=== PATIENT | female | born 1950 | race Caucasian/White ===

== ENCOUNTER 2018-08-11 21:05 | Emergency (ER) | payer MEDICARE, MEDICAID ==
[~2018-08-11] VITALS: Wt 108.9 kg
[~2018-08-11 21:05] MED LIST: FLEXERIL5 MG PO; HYDROCODONE BIT1 T11 PO; PHENERGAN W/DM120 ML PO; VICODIN 5/500 505 MG PO; ZITHROMAX Z PA250 MG PO
[2018-08-11 23:30] VITALS: BP 112/57
== END 2018-08-12 00:55 | disposition short-term general hospital (02) ==
LOC: ED 21:05
DX: S72.492A Other fracture of lower end of left femur, initial encounter for closed fracture (principal); S42.202A Unspecified fracture of upper end of left humerus, initial encounter for closed fracture; S42.145A Nondisplaced fracture of glenoid cavity of scapula, left shoulder, initial encounter for closed fracture; Z79.899 Other long term (current) drug therapy; Z98.890 Other specified postprocedural states; W18.09XA Striking against other object with subsequent fall, initial encounter; Y93.89 Activity, other specified; Y92.512 Supermarket, store or market as the place of occurrence of the external cause; Y99.8 Other external cause status

== ENCOUNTER → 2018-10-04 | Outpatient (CLI) | payer MEDICARE, MEDICAID | END | disposition home or self-care (01) | LOC: RAD 04:35 | DX: Z13.820 Encounter for screening for osteoporosis (principal); M80.022D Age-related osteoporosis with current pathological fracture, left humerus, subsequent encounter for fracture with routine healing; M80.052D Age-related osteoporosis with current pathological fracture, left femur, subsequent encounter for fracture with routine healing; Z78.0 Asymptomatic menopausal state ==

== ENCOUNTER → 2019-12-05 | Outpatient (CLI) | payer MEDICARE, MEDICAID ==
[2019-12-05 09:09] LABS: ABG BASE EXCESS 9.8 mmol/L (-2.0-2.0); ARTERIAL BLOOD GAS PH 7.379 (7.35-7.45)
== END | disposition home or self-care (01) ==
LOC: LAB 08:24
PROVIDERS: Internal Medicine Critical Care Medicine
DX: J44.9 Chronic obstructive pulmonary disease, unspecified (principal); J96.11 Chronic respiratory failure with hypoxia

== ENCOUNTER 2020-09-02 07:54 | Inpatient (IN) | payer MEDICARE, MEDICAID ==
[~2020-09-02] VITALS: Ht 152.4 cm; Wt 118.0 kg
[2020-09-02 07:59] VITALS: BP 142/78
[2020-09-02 08:47] LABS: BASO % 0.3 % (0.0-1.0); EOS # 0.1 10*3/uL (0.0-0.4); HEMATOCRIT 40.3 % (37.0-47.0); LYMPH # 1.1 10*3/uL (1.3-4.4); LYMPH % 18.2 % (27.0-41.0); MEAN CELL VOLUME 94.6 fl (81.0-99.0); MEAN CORPUSCULAR HGB 28.2 pg (27.0-31.0); MEAN CORPUSCULAR HGB CONC 29.8 g/dl (33.0-37.0); MEAN PLATELET VOLUME 8.9 fl (9.6-12.3); MONO # 0.7 10*3/uL (0.1-1.0); MONO % 12.1 % (3.0-9.0); NEUT # 3.9 10*3/uL (2.3-7.9); NEUT % 66.9 % (47.0-73.0); PLATELET COUNT AUTOMATED 142 10*3/uL (130-400); RED BLOOD COUNT 4.26 10*6/uL (4.10-5.10); RED CELL DISTRI WIDTH 15.7 % (0-14.5); WHITE BLOOD COUNT 5.9 10*3/uL (4.8-10.8)
[2020-09-02 08:59] LABS: ACT PARTIAL THROMBO TIME 28.7 SECONDS (20.0-32.1); INTERNATIONAL NORM RATIO 0.9 (2.0-3.5)
[2020-09-02 09:03] LABS: ALBUMIN 2.9 gm/dl (3.1-4.5); ALKALINE PHOSPHATASE 122 U/L (45-117); BUN 23 mg/dl (7-24); CHLORIDE 98 mmol/L (98-107); CPK 23 U/L (26-192); CREATININE 0.85 mg/dL (0.55-1.02); LDH 163 U/L (84-246); POTASSIUM 4.3 mmol/L (3.5-5.1); SGOT/AST 18 IU/L (3-35); SGPT/ALT 24 U/L (12-78); SODIUM 142 mmol/L (136-145); TOTAL PROTEIN 6.9 gm/dL (6.4-8.2)
[2020-09-02 09:10] LABS: TROPONIN I < 0.015 ng/ml (<0.045)
[2020-09-02 10:40] LABS: ARTERIAL BLOOD GAS PH 7.297 (7.35-7.45)
--- NOTE | 2020-09-02 11:43 | NUR ---
DR RANGEL CONSULT CALLED, VERBAL ORDER FOR BIPAP TO 20/10 40%, ABG IN 2HOURS. I DID CALL AND SPEAK DIRECTLY WITH RESPIRATORY BUT AM UNABLE TO INPUT THESE ORDERS DIRECTLY MYSELF INTO THE ORDER SYSTEM AND DR BOONE IS NO LONGER THE PT'S
--- NOTE | 2020-09-02 12:00 | NUR ---
BIPAP CHANGES MADE, PATIENT PLACED ON 20/10 FIO2 40%, ABGS ORDERED IN 2 HOURS
[2020-09-02 12:14] VITALS: BP 138/74
[2020-09-02] MEDS ORDERED: BUSPAR5 MG PO (12:38)
[2020-09-02] MEDS ORDERED: ABILIFY2 MG PO (12:38)
[2020-09-02] MEDS ORDERED: MIRALAX17 GM PO (12:39)
[2020-09-02] MEDS ORDERED: LASIX40 MG PO (12:39)
[2020-09-02] MEDS ORDERED: NEURONTIN100 MG PO (12:40)
[2020-09-02] MEDS ORDERED: MULTIVITAMINS1 EAC5 PO (12:40)
[2020-09-02] MEDS ORDERED: POTASSIUM CHLO10 ME5 PO (12:41)
[2020-09-02] MEDS ORDERED: PAXIL40 M1 PO (12:41)
[2020-09-02] MEDS ORDERED: POTASSIUM CHLO20 ME3 PO (12:42)
[2020-09-02] MEDS ORDERED: PRESERVISION A1 EAC2 PO (12:43)
[2020-09-02] MEDS ORDERED: SYNTHROID,LEV125 MCG PO (12:43)
[2020-09-02] MEDS ORDERED: VITAMIN C500 M8 PO (12:44)
[2020-09-02] MEDS ORDERED: CARVEDILOL12.5 MG PO (12:46)
[2020-09-02] MEDS ORDERED: SYMB160 INH (12:47)
[2020-09-02] MEDS ORDERED: FISH OIL 1,0001 EAC5 PO (12:47)
[2020-09-02] MEDS ORDERED: PROVENTIL HFA6.7 GM INH (12:48)
--- NOTE | 2020-09-02 12:57 | NUR ---
PT PLACED ON BEDPAN BUT [place] SPILLED. PT HAD ASKED TO *NOT* BE CATH'D FOR SPECIMEN. BED CHANGE ACCOMPLISHED, NEW ADULT BRIEF AND NEW BEDPAD. WILL RE-EVALUATE PT ACCEPTANCE OF URINARY CATH.
[2020-09-02 14:35] LABS: ABG BASE EXCESS 14.7 mmol/L (-2.0-2.0); ARTERIAL BLOOD GAS PH 7.329 (7.35-7.45)
--- NOTE | 2020-09-02 14:41 | NUR ---
DR RANGEL NOTIFIED OF SECOND ABG...PCO2 AT 86, DOWN FROM 94. DR RANGEL ORDERS REPEAT ABG AT 6PM AND TO MAINTAIN BIPAP AT 20/10 AT 40% FOR NOW. I DID SPEAK WITH EMANUEL FROM RESPIRATORY WHO STATES SHE WILL INPUT THIS ORDER AND FOLLOW UP AT 1800.
[2020-09-02 15:13] VITALS: BP 142/67
--- NOTE | 2020-09-02 16:49 | NUR ---
PT CHECDKED FOR INCONTINENCE AND TO ENSURE CALLBELL IS WITHIN REACH. PT DRY, DENIES NEED FOR BEDPAN. VITALS STABLE. SHE REMAINS A&OX3. I HAVE SPOKEN WITH HER FAMILY WHO STATE PT WILL NOT LIKE TO USE CALLBELL TO "BOTHER" US....I DID EMPHASIZE WITH PT TO PLEASE USE CALLBELL NEEDED. REFUSES TV. STATES SHE MIGHT BE FEELING SLIGHTLY BETTER. REPEAT ABG DUE AT 1800. BIPAP REMAINS IN PLACE WITHOUT COMPLICATION. POX 99% ON BIPAP CURRENT SETTINGS.
[2020-09-02 18:05] LABS: ABG BASE EXCESS 14.8 mmol/L (-2.0-2.0); ARTERIAL BLOOD GAS PH 7.333 (7.35-7.45)
--- NOTE | 2020-09-02 18:16 | NUR ---
2nd abg retuRNS W/ POC02 AT 85. DR RANGEL CONTACTED, STATES "SHE IS ON TRACk' AND TO LEAVE THE BIPAP ON CURRENT SETTINGS AND TO REPEAT THE ABG AT 0800. I DID SPEAK WITH EMANUEL FROM RESPIRATORY WHO SAID SHE WOULD INPUT THE ORDER TONANN.
[2020-09-02 20:31] VITALS: BP 127/84
[2020-09-02 23:41] LABS: BILIRUBIN Negative (Negative); BLOOD Trace-Intact (Negative); CLARITY Turbid (Clear); COLOR Yellow (Yellow); GLUCOSE Negative (Negative); KETONE Negative (Negative); LEUKO ESTERASE 3+ (Negative); NITRITE Negative (Negative)
[2020-09-02 23:49] LABS: WBC TNTC wbc/hpf (0-5)
[2020-09-02 23:50] LABS: BACTERIA 1+
[2020-09-03] VITALS (7 sets, daily range): BP systolic 112–140; BP diastolic 68–86
[2020-09-03 06:09] LABS: CHLORIDE 99 mmol/L (98-107); POTASSIUM 3.6 mmol/L (3.5-5.1); SODIUM 142 mmol/L (136-145)
[2020-09-03 06:16] LABS: BASO % 0.2 % (0.0-1.0); EOS # 0.1 10*3/uL (0.0-0.4); EOS % 1.2 % (1.0-4.0); HEMATOCRIT 38.2 % (37.0-47.0); LYMPH # 0.8 10*3/uL (1.3-4.4); LYMPH % 15.9 % (27.0-41.0); MEAN CELL VOLUME 94.3 fl (81.0-99.0); MEAN CORPUSCULAR HGB 28.1 pg (27.0-31.0); MEAN CORPUSCULAR HGB CONC 29.8 g/dl (33.0-37.0); MEAN PLATELET VOLUME 9.1 fl (9.6-12.3); MONO # 0.7 10*3/uL (0.1-1.0); MONO % 13.8 % (3.0-9.0); NEUT # 3.3 10*3/uL (2.3-7.9); NEUT % 68.5 % (47.0-73.0); PLATELET COUNT AUTOMATED 128 10*3/uL (130-400); RED BLOOD COUNT 4.05 10*6/uL (4.10-5.10); RED CELL DISTRI WIDTH 15.6 % (0-14.5); WHITE BLOOD COUNT 4.9 10*3/uL (4.8-10.8)
[2020-09-03 06:17] LABS: ALBUMIN 2.9 gm/dl (3.1-4.5); ALKALINE PHOSPHATASE 115 U/L (45-117); BUN 20 mg/dl (7-24); CREATININE 0.66 mg/dL (0.55-1.02); SGOT/AST 17 IU/L (3-35); SGPT/ALT 17 U/L (12-78); TOTAL PROTEIN 6.9 gm/dL (6.4-8.2)
[2020-09-03 06:25] LABS: CPK 44 U/L (26-192)
--- NOTE | 2020-09-03 07:10 | NUR ---
PT REPORT ACCEPTED FOR CONTINUATION OF CARE. PT RESTING WITH EYES CLOSED. NO VOICED COMPLAINTS. VITALS STABLE. MEAL TRAY WILL BE ORDERED SHORTLY. NO CHANGE IN CONDITION SINCE MY SHIFT YESTERDAY.
[2020-09-03 08:18] LABS: ABG BASE EXCESS 12.5 mmol/L (-2.0-2.0); ARTERIAL BLOOD GAS PH 7.328 (7.35-7.45)
--- NOTE | 2020-09-03 08:26 | NUR ---
DR ENRIQUEZ CONSULTED.
--- NOTE | 2020-09-03 08:58 | NUR ---
DR RANGEL CONSULTED WITH PCO2 AT 81 AND STATES TO CONTINUE BIPAP WITH CURRENT SETTING 20/10 AT 40% AND NO OTHER ORDERS.
--- NOTE | 2020-09-03 09:00 | NUR ---
Patient is a LTC resident at [facility]. inventory worker following for her return.
--- NOTE | 2020-09-03 09:55 | NUR ---
2D limited echo completed.
--- NOTE | 2020-09-03 10:05 | NUR ---
BREAKFAST TRAY PROVIDED TO PT WITH PARTIAL FEEDING OF TWO MILKS AND TWO JUICES, REFUSED THE ACTUAL FOOD. MEDS PROVIDED ORDERED. PT STATES SHE ACTUALLY FEELS "A LITTLE BETTER" AND SHE DOES PRESENT MORE ALERT THAN DURING MY SHIFT YESTERDAY. URINARY OUTPUT AT 400CC IN SANDOVAL BAG AT THIS TIME.
--- NOTE | 2020-09-03 12:47 | NUR ---
MEAL TRAY PROVIDED AND ASSISTANCE TO EAT AND DRINK TO HER CONTENT. NO VOICED COMPLAINTS.
--- NOTE | 2020-09-03 15:41 | NUR ---
NURSE REPORT TO ELDA KEENE, FOR CONTINUATION OF CARE. NO CHANGE IN CONDITION. NO COMPLAINT. PT RESTING WITH EYES CLOSED, VITALS STABLE.
--- NOTE | 2020-09-03 18:32 | NUR ---
PT TAKEN OFF OF BIPAP TO EAT. PLACED ON 4L VIA NC. SP02 95%. PT ATE 50% OF HER DINNER AND PT WAS ENCOURAGED TO DRINK FLUIDS. BIPAP REPLACED. PT DENIES ANY NEEDS AT THIS TIME.
--- NOTE | 2020-09-03 20:30 | NUR ---
A 70, admitted to , under the services of JOAO Sinclair DO with a diagnosis of COVID 19, HYPOXIA ACUTE RESP FAILURE. Chief complaint is DECREASED PULSE OX 85 EVER WITH HER OXYGEN AT [facility]. Patient arrived via stretcher from ER. Monitor applied. Initial assessment completed. Vital signs taken and recorded. JOAO SINCLAIR DO notified of admission to the unit. Orders received. See assessment for past medical history, medications and allergies. Patient and/or family oriented to unit. [facility] visitation policy reviewed. Clothing/patient valuable form completed. PINK MOISTURE RASH UNDER BREAST AND GROIN FOLDS. LOWER LEGS DARK BROWN AND FLAKY. PATIENT USALLY SITTING WHELLCHAIR AND WALKS WITH WALKER WITH PHYSICAL THERAPY FOR THE DAY. BON BUNN J
[2020-09-04] VITALS: BP 126/58
--- NOTE | 2020-09-04 01:00 | NUR ---
PULSE OX 82% PER CARBURIZING FURNACE OPERATOR. UPON ENTERING ROOM PATIENT SLEEPING LOWER LIP OF PATIENT OUT OF BIPAP MASK. BIPAP MASK ADJUSTED AND PULSE OX 88%-91% INCREASED OXYGEN TO 5 L BLEED INTO BIPAP PULSE OX INCREASE SLIGHTLY TO 92% INCREASED OXYGEN TO 6L RESPIRATORY THERAPIST HERE AND HELPING TO ADJUST MASK AND O2. WHEN LEAVING ROOM PULSE OX 95%. PATIENT TOLERATING BIPAP AT THIS TIME. WILL CONTINUE TO MONITOR.
[2020-09-04] MEDS ORDERED: LIPITOR20 MG PO (03:37)
--- NOTE | 2020-09-04 06:00 | NUR ---
PATIENT TOLERATED BIPAP SINCE 99 AND HAS NOT DESATED SINCE.
[2020-09-04 07:33] LABS: BASO % 0.3 % (0.0-1.0); HEMATOCRIT 37.8 % (37.0-47.0); LYMPH # 0.5 10*3/uL (1.3-4.4); MEAN CELL VOLUME 91.5 fl (81.0-99.0); MEAN CORPUSCULAR HGB 28.1 pg (27.0-31.0); MEAN CORPUSCULAR HGB CONC 30.7 g/dl (33.0-37.0); MEAN PLATELET VOLUME 9.2 fl (9.6-12.3); MONO # 0.3 10*3/uL (0.1-1.0); MONO % 8.8 % (3.0-9.0); NEUT # 2.1 10*3/uL (2.3-7.9); NEUT % 72.2 % (47.0-73.0); PLATELET COUNT AUTOMATED 134 10*3/uL (130-400); RED BLOOD COUNT 4.13 10*6/uL (4.10-5.10); RED CELL DISTRI WIDTH 14.8 % (0-14.5); WHITE BLOOD COUNT 2.9 10*3/uL (4.8-10.8)
[2020-09-04 07:48] LABS: ALBUMIN 2.7 gm/dl (3.1-4.5); ALKALINE PHOSPHATASE 106 U/L (45-117); BUN 27 mg/dl (7-24); CHLORIDE 102 mmol/L (98-107); CPK 29 U/L (26-192); CREATININE 0.68 mg/dL (0.55-1.02); POTASSIUM 4.4 mmol/L (3.5-5.1); SGOT/AST 11 IU/L (3-35); SGPT/ALT 18 U/L (12-78); SODIUM 139 mmol/L (136-145)
[2020-09-04 08:00] VITALS: BP 130/56; BP 136/68
--- NOTE | 2020-09-04 08:00 | NUR ---
IN TO PATIENT'S ROOM. PATIENT IS AWAKE, ALERT AND ORIENTED. NO STATED COMPLAINTS AT THIS TIME. DENIES ANY PAIN. NASAL CANNULA INTACT AND NO SOB NOTED AT REST. RESPIRATIONS ARE EASY AND REGULAR AT THIS TIME. PATIENT IS ABLE TO SHIFT WEIGHT IN BED AND IS ENCOURAGED TO DO SO. BED IN LOWEST LOCKED POSITION AND CALL LIGHT WITHIN REACH.
[2020-09-04 09:01] LABS: ABG BASE EXCESS 9.8 mmol/L (-2.0-2.0); ARTERIAL BLOOD GAS PH 7.354 (7.35-7.45)
[2020-09-04 12:00] VITALS: BP 132/74
[2020-09-04 16:00] VITALS: BP 147/64
[2020-09-04 20:00] VITALS: BP 133/62
--- NOTE | 2020-09-04 23:15 | NUR ---
PLACED PATIENT ON BIPAP FOR HS
[2020-09-05] VITALS: BP 133/58
--- NOTE | 2020-09-05 02:05 | NUR ---
24 HR chart check completed.
[2020-09-05 08:00] VITALS: BP 138/57
[2020-09-05 08:11] LABS: BASO % 0.2 % (0.0-1.0); HEMATOCRIT 37.7 % (37.0-47.0); LYMPH # 0.9 10*3/uL (1.3-4.4); LYMPH % 15.5 % (27.0-41.0); MEAN CELL VOLUME 91.1 fl (81.0-99.0); MEAN CORPUSCULAR HGB 28.3 pg (27.0-31.0); MEAN PLATELET VOLUME 9.1 fl (9.6-12.3); MONO # 0.7 10*3/uL (0.1-1.0); MONO % 12.9 % (3.0-9.0); PLATELET COUNT AUTOMATED 160 10*3/uL (130-400); RED BLOOD COUNT 4.14 10*6/uL (4.10-5.10); RED CELL DISTRI WIDTH 14.8 % (0-14.5); WHITE BLOOD COUNT 5.7 10*3/uL (4.8-10.8)
[2020-09-05 08:27] LABS: ALBUMIN 2.7 gm/dl (3.1-4.5); ALKALINE PHOSPHATASE 98 U/L (45-117); BUN 30 mg/dl (7-24); CHLORIDE 101 mmol/L (98-107); CPK 32 U/L (26-192); SGOT/AST 11 IU/L (3-35); SGPT/ALT 18 U/L (12-78); SODIUM 140 mmol/L (136-145); TOTAL PROTEIN 6.8 gm/dL (6.4-8.2)
--- NOTE | 2020-09-05 08:50 | NUR ---
PATIENT TAKEN OFF OF BI-PAP, PLACED ON 4 L/M.
[2020-09-05 08:53] LABS: ABG BASE EXCESS 11.1 mmol/L (-2.0-2.0); ARTERIAL BLOOD GAS PH 7.396 (7.35-7.45)
[2020-09-05 12:00] VITALS: BP 122/73
[2020-09-05 16:00] VITALS: BP 152/42
--- NOTE | 2020-09-05 17:20 | NUR ---
PT HAIR SHAMPOOED WITH CAP AND DINNER SET UP. PT RESP EASY AND NONLABORED ON O2 6L NC. PT DENIES C/O. CALL LIGHT IN REACH. ISOLATION PRECAUTIONS MAINTAINED. WILL MONITOR
[2020-09-05 20:00] VITALS: BP 132/57
--- NOTE | 2020-09-05 20:30 | NUR ---
PT RESTING IN BED. REPOSITIONED FOR COMFORT. TOLERATED ROUTINE MED WITH NO PROBLEM. NO SOB NOTED. OXYGEN IN USE. CALL LIGHT IN REACH. SEE SHIFT ASSESSMENT.
[2020-09-06] VITALS: BP 127/60
--- NOTE | 2020-09-06 00:15 | NUR ---
PT RESTING IN BED. RESP-EASY AND REGULAR. OXYGEN IN USE. REPOSITIONED IN BED. CALL LIGHT IN REACH. SEE SHIFT ASSESSMENT.
--- NOTE | 2020-09-06 05:45 | NUR ---
RESTING IN BED, AIDE BATHING PT. CALL LIGHT IN REACH. OXYGEN IN USE.
[2020-09-06 07:42] LABS: BASO % 0.2 % (0.0-1.0); HEMATOCRIT 40.4 % (37.0-47.0); LYMPH # 0.9 10*3/uL (1.3-4.4); LYMPH % 22.4 % (27.0-41.0); MEAN CELL VOLUME 92.7 fl (81.0-99.0); MEAN CORPUSCULAR HGB 28.2 pg (27.0-31.0); MEAN CORPUSCULAR HGB CONC 30.4 g/dl (33.0-37.0); MEAN PLATELET VOLUME 9.3 fl (9.6-12.3); MONO # 0.6 10*3/uL (0.1-1.0); MONO % 13.9 % (3.0-9.0); NEUT # 2.5 10*3/uL (2.3-7.9); NEUT % 62.8 % (47.0-73.0); PLATELET COUNT AUTOMATED 160 10*3/uL (130-400); RED BLOOD COUNT 4.36 10*6/uL (4.10-5.10)
[2020-09-06 08:00] VITALS: BP 141/56
--- NOTE | 2020-09-06 08:05 | NUR ---
PT TAKEN OFF BIPAP AND PLACED ON 6LNC
[2020-09-06 08:06] LABS: ALBUMIN 2.8 gm/dl (3.1-4.5); BUN 35 mg/dl (7-24); CHLORIDE 100 mmol/L (98-107); POTASSIUM 4.1 mmol/L (3.5-5.1); SODIUM 141 mmol/L (136-145)
[2020-09-06 08:09] LABS: ALKALINE PHOSPHATASE 103 U/L (45-117); CREATININE 0.88 mg/dL (0.55-1.02); LDH 173 U/L (84-246); SGOT/AST 11 IU/L (3-35); SGPT/ALT 21 U/L (12-78); TOTAL PROTEIN 7.2 gm/dL (6.4-8.2)
[2020-09-06 08:19] LABS: ABG BASE EXCESS 10.2 mmol/L (-2.0-2.0); ARTERIAL BLOOD GAS PH 7.358 (7.35-7.45)
--- NOTE | 2020-09-06 08:59 | NUR ---
Patient comes in from [facility] as a [facility] resident. Faxed updated clinicals to [facility] for review.
--- NOTE | 2020-09-06 09:00 | NUR ---
HELD COREG DUE TO BRADYCARDIA - HR 40'S-50'S.
[2020-09-06 12:00] VITALS: BP 142/62
[2020-09-06 16:00] VITALS: BP 110/58
--- NOTE | 2020-09-06 17:30 | NUR ---
NOTIFIED THAT PATIENT'S IV SITE IS REDDENED AND SWOLLEN. MULTIPLE NURSES ATTEMPTED TO PLACE NEW SITE WITH NO SUCCESS, EVEN WITH ULTRASOUND. IS AWARE.
[2020-09-06 20:00] VITALS: BP 137/51
--- NOTE | 2020-09-06 20:29 | NUR ---
IV started right antecubital with #201 angiocath after attempts. The IV site was prepped with Chloraprep. Heparin lock attached Sterile dressing applied. Patient tolerated precedure well. Procedure performed according to [facility] policy & procedure. MURTAZA KENDALL
--- NOTE | 2020-09-06 23:53 | NUR ---
Pt placed on BiPap(V30) 20/12 and 5L bleed in. Alarms on and audible.
[2020-09-07] VITALS: BP 127/56
--- NOTE | 2020-09-07 00:10 | NUR ---
PT RESTING IN BED WITH EYES CLOSED. RESP-EASY AND REGULAR. BIPAP IN USE. CALL LIGHT IN REACH. SEE SHIFT ASSESSMENT.
--- NOTE | 2020-09-07 03:35 | NUR ---
PT RESTING COMFORTABLY ON V30 SATS 95%
--- NOTE | 2020-09-07 04:00 | NUR ---
RESTING IN BED WITH EYES CLOSED. RESP-EASY AND REGULAR. BIPAP IN USE. CALL LIGHT IN REACH.
[2020-09-07 06:15] LABS: ALBUMIN 2.9 gm/dl (3.1-4.5); ALKALINE PHOSPHATASE 100 U/L (45-117); BUN 33 mg/dl (7-24); CHLORIDE 98 mmol/L (98-107); CREATININE 0.75 mg/dL (0.55-1.02); LDH 175 U/L (84-246); POTASSIUM 4.1 mmol/L (3.5-5.1); SGOT/AST 13 IU/L (3-35); SGPT/ALT 20 U/L (12-78); SODIUM 140 mmol/L (136-145); TOTAL PROTEIN 6.9 gm/dL (6.4-8.2)
[2020-09-07 06:25] LABS: BASO % 0.2 % (0.0-1.0); HEMATOCRIT 38.8 % (37.0-47.0); LYMPH # 1.2 10*3/uL (1.3-4.4); LYMPH % 25.3 % (27.0-41.0); MEAN CELL VOLUME 91.5 fl (81.0-99.0); MEAN CORPUSCULAR HGB 28.5 pg (27.0-31.0); MEAN CORPUSCULAR HGB CONC 31.2 g/dl (33.0-37.0); MEAN PLATELET VOLUME 9.6 fl (9.6-12.3); MONO # 0.7 10*3/uL (0.1-1.0); MONO % 14.8 % (3.0-9.0); NEUT # 2.7 10*3/uL (2.3-7.9); NEUT % 58.4 % (47.0-73.0); PLATELET COUNT AUTOMATED 178 10*3/uL (130-400); RED BLOOD COUNT 4.24 10*6/uL (4.10-5.10); RED CELL DISTRI WIDTH 14.9 % (0-14.5); WHITE BLOOD COUNT 4.5 10*3/uL (4.8-10.8)
[2020-09-07 08:00] VITALS: BP 140/69
[2020-09-07 08:10] LABS: ABG BASE EXCESS 12.5 mmol/L (-2.0-2.0); ARTERIAL BLOOD GAS PH 7.38 (7.35-7.45)
--- NOTE | 2020-09-07 09:00 | NUR ---
Patient is a LTC resident at [facility]. case planner following for her return.
[2020-09-07 12:00] VITALS: BP 146/68
[2020-09-07 16:00] VITALS: BP 151/67
[2020-09-07 20:00] VITALS: BP 145/67
--- NOTE | 2020-09-07 20:00 | NUR ---
PT RESTING IN BED. RESPOSITIONED IN BED. TOLERATED ROUTINE MED WITH NO PROBLEM. OXYGEN IN USE. CALL LIGHT IN REACH. SEE SHIFT ASSESSMENT.
--- NOTE | 2020-09-07 23:17 | NUR ---
Pt placed on BiPap with 5L bleed in. Alarms on and audible.
[2020-09-08] VITALS: BP 144/79
[2020-09-08 07:06] LABS: BASO % 0.2 % (0.0-1.0); EOS % 0.2 % (1.0-4.0); HEMATOCRIT 41.2 % (37.0-47.0); LYMPH # 1.3 10*3/uL (1.3-4.4); LYMPH % 30.2 % (27.0-41.0); MEAN CELL VOLUME 92.6 fl (81.0-99.0); MEAN CORPUSCULAR HGB 28.3 pg (27.0-31.0); MEAN CORPUSCULAR HGB CONC 30.6 g/dl (33.0-37.0); MEAN PLATELET VOLUME 9.5 fl (9.6-12.3); MONO # 0.5 10*3/uL (0.1-1.0); MONO % 11.4 % (3.0-9.0); NEUT # 2.4 10*3/uL (2.3-7.9); NEUT % 56.8 % (47.0-73.0); PLATELET COUNT AUTOMATED 181 10*3/uL (130-400); RED BLOOD COUNT 4.45 10*6/uL (4.10-5.10); RED CELL DISTRI WIDTH 14.7 % (0-14.5); WHITE BLOOD COUNT 4.2 10*3/uL (4.8-10.8)
--- NOTE | 2020-09-08 07:50 | NUR ---
[facility] Faxed order/settings for bipap; patient is skilled nursing and ok to return when medically stable.
[2020-09-08 08:00] VITALS: BP 125/76
[2020-09-08 09:52] LABS: ALBUMIN 2.9 gm/dl (3.1-4.5); ALKALINE PHOSPHATASE 100 U/L (45-117); BUN 31 mg/dl (7-24); CHLORIDE 98 mmol/L (98-107); CREATININE 0.61 mg/dL (0.55-1.02); LDH 317 U/L (84-246); SGOT/AST 38 IU/L (3-35); SGPT/ALT 29 U/L (12-78); SODIUM 141 mmol/L (136-145); TOTAL PROTEIN 6.6 gm/dL (6.4-8.2)
[2020-09-08 11:49] VITALS: BP 119/61
[2020-09-08] MEDS ORDERED: DECADRON6 M1 PO (13:24)
--- NOTE | 2020-09-08 13:44 | NUR ---
PATIENT IS DISCHARGED. PORTABLE TRACK CREW CHIEF ARRANGED FOR A 4PM TRANSPORT WITH [facility]. PORTABLE TRACK CREW CHIEF NOTIFIED CHAD ZHONG. PORTABLE TRACK CREW CHIEF TO FAX DEMOGRAPHICS TO [facility] AND DISCHARGE ORDERS TO [facility].
--- NOTE | 2020-09-08 15:40 | NUR ---
DID NOT TAKE PHOTOS OF PATIENT'S EXCORIATIONS BELOW BREASTS & ABD FOLDS DUE TO THEY WERE NO LONGER RED. PATIENT STATES THERE WAS NO NEED TO TAKE PHOTOS.
[2020-09-08 16:00] VITALS: BP 145/66
--- NOTE | 2020-09-08 18:30 | NUR ---
Discharge instructions reviewed with patient/family. Patient receptive and verbalizes understanding. Follow-up care arranged. Written instructions given to patient/family. [place] DISCONTINUED. SCALE ASSEMBLY SET UP WORKER REMOVED. REPORT GIVEN TO [facility]). TAKEN OFF FLOOR VIA [facility]. DAMIAN YOON
== END 2020-09-08 19:25 | disposition other institution (70) | DRG 177 ==
LOC: ED 07:54 → EDHOLD 10:48 → 4E 10:48
PROVIDERS: Emergency Medicine; Internal Medicine; Internal Medicine Critical Care Medicine; ADMIT Family Medicine; ATTEND Family Medicine
PROC: 5A09357 Assistance with Respiratory Ventilation, Less than 24 Consecutive Hours, Continuous Positive Airway Pressure (ICD-10-PCS; principal; 2020-09-02)
PROC: 5A09357 Assistance with Respiratory Ventilation, Less than 24 Consecutive Hours, Continuous Positive Airway Pressure (ICD-10-PCS; 2020-09-03)
PROC: 5A09357 Assistance with Respiratory Ventilation, Less than 24 Consecutive Hours, Continuous Positive Airway Pressure (ICD-10-PCS; 2020-09-04)
PROC: XW033E5 Introduction of Remdesivir Anti-infective into Peripheral Vein, Percutaneous Approach, New Technology Group 5 (ICD-10-PCS; 2020-09-04)
PROC: 5A09357 Assistance with Respiratory Ventilation, Less than 24 Consecutive Hours, Continuous Positive Airway Pressure (ICD-10-PCS; 2020-09-05)
PROC: 5A09357 Assistance with Respiratory Ventilation, Less than 24 Consecutive Hours, Continuous Positive Airway Pressure (ICD-10-PCS; 2020-09-05)
PROC: 5A09357 Assistance with Respiratory Ventilation, Less than 24 Consecutive Hours, Continuous Positive Airway Pressure (ICD-10-PCS; 2020-09-07)
PROC: 5A09357 Assistance with Respiratory Ventilation, Less than 24 Consecutive Hours, Continuous Positive Airway Pressure (ICD-10-PCS; 2020-09-08)
PROC: 5A0935A Assistance with Respiratory Ventilation, Less than 24 Consecutive Hours, High Flow/Velocity Cannula (ICD-10-PCS; 2020-09-08)
DX: U07.1 COVID-19 (principal); J96.21 Acute and chronic respiratory failure with hypoxia; J96.22 Acute and chronic respiratory failure with hypercapnia; E43 Unspecified severe protein-calorie malnutrition; J12.89 Other viral pneumonia; D68.59 Other primary thrombophilia; E87.2 Acidosis; E87.3 Alkalosis; R78.81 Bacteremia; Z68.42 Body mass index [BMI] 45.0-49.9, adult; J45.909 Unspecified asthma, uncomplicated; I50.9 Heart failure, unspecified; E66.01 Morbid (severe) obesity due to excess calories; F41.1 Generalized anxiety disorder; J44.9 Chronic obstructive pulmonary disease, unspecified; E03.9 Hypothyroidism, unspecified; G62.9 Polyneuropathy, unspecified; R73.9 Hyperglycemia, unspecified; E78.5 Hyperlipidemia, unspecified; G47.33 Obstructive sleep apnea (adult) (pediatric); B95.7 Other staphylococcus as the cause of diseases classified elsewhere; Z87.81 Personal history of (healed) traumatic fracture; Z83.3 Family history of diabetes mellitus; Z79.899 Other long term (current) drug therapy

== ENCOUNTER → 2022-02-16 | Outpatient (CLI) | payer MEDICARE, MEDICAID ==
[~2022-02-16] MED LIST changes: +ABILIFY2 MG PO; +BUSPAR5 MG PO; +CARVEDILOL12.5 MG PO; +DECADRON6 M1 PO; +FISH OIL 1,0001 EAC5 PO; +LASIX40 MG PO; +LIPITOR20 MG PO; +MIRALAX17 GM PO; +MULTIVITAMINS1 EAC5 PO; +NEURONTIN100 MG PO; +PAXIL40 M1 PO; +POTASSIUM CHLO10 ME5 PO; +POTASSIUM CHLO20 ME3 PO; +PRESERVISION A1 EAC2 PO; +PROVENTIL HFA6.7 GM INH; +SYMB160 INH; +SYNTHROID,LEV125 MCG PO; +VITAMIN C500 M8 PO
== END | disposition home or self-care (01) ==
LOC: CT 01:14
PROVIDERS: ATTEND Internal Medicine
DX: R16.2 Hepatomegaly with splenomegaly, not elsewhere classified (principal); R32 Unspecified urinary incontinence; K57.30 Diverticulosis of large intestine without perforation or abscess without bleeding; K43.9 Ventral hernia without obstruction or gangrene; M43.25 Fusion of spine, thoracolumbar region; M41.86 Other forms of scoliosis, lumbar region; I51.7 Cardiomegaly; I70.0 Atherosclerosis of aorta; I70.8 Atherosclerosis of other arteries; Z90.49 Acquired absence of other specified parts of digestive tract

== ENCOUNTER → 2023-05-14 | Outpatient (CLI) | payer MEDICARE, MEDICAID | END | disposition home or self-care (01) | LOC: CT 01:17 | PROVIDERS: ATTEND Internal Medicine | DX: J18.8 Other pneumonia, unspecified organism (principal); E07.89 Other specified disorders of thyroid; M40.294 Other kyphosis, thoracic region; Z90.49 Acquired absence of other specified parts of digestive tract ==